=== PATIENT | female | born 1995 | race Caucasian/White ===

== ENCOUNTER 2020-03-22 19:27 | Emergency (ER) | payer OTHER ==
[~2020-03-22] VITALS: Ht 170.1 cm; Wt 72.6 kg
== END 2020-03-22 22:58 | disposition home or self-care (01) ==
LOC: ED 19:27
DX: S62.306A Unspecified fracture of fifth metacarpal bone, right hand, initial encounter for closed fracture (principal); X58.XXXA Exposure to other specified factors, initial encounter; Y93.89 Activity, other specified; Y92.89 Other specified places as the place of occurrence of the external cause; Y99.8 Other external cause status

== ENCOUNTER 2020-07-26 18:25 | Emergency (ER) | payer OTHER ==
[~2020-07-26] VITALS: Ht 165.1 cm; Wt 86.2 kg
[2020-07-26] MEDS ORDERED: ZOLOFT25 MG PO (19:23)
[2020-07-26] MEDS ORDERED: EFFEXOR XR75 M1 PO (19:24)
[2020-07-26] MEDS ORDERED: VYVANSE30 MG PO (19:26)
[2020-07-26 19:37] LABS: BILIRUBIN Negative (Negative); BLOOD 3+ (Negative); CLARITY Cloudy (Clear); COLOR Yellow (Yellow); GLUCOSE Negative (Negative); KETONE Negative (Negative); LEUKO ESTERASE 1+ (Negative); NITRITE Negative (Negative); UROBILINOGEN 0.2 E.U./dl (0.0-1.0)
[2020-07-26 19:51] LABS: RBC TNTC rbc/hpf (0-2)
[2020-07-26 20:31] LABS: BASO % 0.2 % (0.0-1.0); EOS # 0.1 10*3/uL (0.0-0.4); EOS % 0.5 % (1.0-4.0); HEMATOCRIT 39.6 % (37.0-47.0); LYMPH # 2.1 10*3/uL (1.3-4.4); LYMPH % 19.2 % (27.0-41.0); MEAN CELL VOLUME 79.7 fl (81.0-99.0); MEAN CORPUSCULAR HGB CONC 32.6 g/dl (33.0-37.0); MEAN PLATELET VOLUME 14.3 fl (9.6-12.3); MONO # 0.6 10*3/uL (0.1-1.0); MONO % 5.5 % (3.0-9.0); NEUT # 8.2 10*3/uL (2.3-7.9); NEUT % 74.2 % (47.0-73.0); PLATELET COUNT AUTOMATED 142 10*3/uL (130-400); RED BLOOD COUNT 4.97 10*6/uL (4.10-5.10); RED CELL DISTRI WIDTH 14.1 % (0-14.5)
[2020-07-26 20:46] LABS: ALBUMIN 2.6 gm/dl (3.1-4.5); ALKALINE PHOSPHATASE 76 U/L (45-117); BUN 6 mg/dl (7-24); CHLORIDE 107 mmol/L (98-107); CREATININE 0.59 mg/dL (0.55-1.02); SGOT/AST 8 IU/L (3-35); SGPT/ALT 13 U/L (12-78); SODIUM 141 mmol/L (136-145); TOTAL PROTEIN 6.7 gm/dL (6.4-8.2)
== END 2020-07-26 22:17 | disposition home or self-care (01) ==
LOC: ED 18:25
PROVIDERS: Physician Assistant
DX: O46.92 Antepartum hemorrhage, unspecified, second trimester (principal); Z3A.21 21 weeks gestation of pregnancy

== ENCOUNTER 2024-05-20 15:58 | Emergency (ER) | payer OTHER ==
[~2024-05-20] VITALS: Ht 152.4 cm; Wt 83.9 kg
[~2024-05-20 15:58] MED LIST: CLARITIN10 MG PO; EFFEXOR XR75 M1 PO; FLONASE ALLERG9.9 ML NAS; VYVANSE30 MG PO; ZITHROMAX500 MG PO; ZOLOFT25 MG PO
[2024-05-20] MEDS ORDERED: VALTREX500 MG PO (16:25)
[2024-05-20 16:40] LABS: BILIRUBIN Negative (Negative); BLOOD Negative (Negative); CLARITY Turbid (Clear); COLOR Yellow (Yellow); GLUCOSE Negative (Negative); KETONE Negative (Negative); LEUKO ESTERASE Negative (Negative); NITRITE Negative (Negative); UROBILINOGEN 0.2 E.U./dl (0.0-1.0)
[2024-05-20 16:48] LABS: BACTERIA 1+
[2024-05-20] MEDS ORDERED: valACYclovir Hydrochloride 500 MG CAP PO ONE (16:55)
[2024-05-20] MEDS ORDERED: Ciprofloxacin Hydrochloride 500 MG TAB PO ONE (16:55)
[2024-05-20] MEDS ORDERED: CIPRO500 MG PO (16:57)
== END 2024-05-20 17:05 | disposition home or self-care (01) ==
LOC: ED 15:58
PROVIDERS: Nurse Practitioner
DX: A60.00 Herpesviral infection of urogenital system, unspecified (principal); N39.0 Urinary tract infection, site not specified; F41.9 Anxiety disorder, unspecified; F32.A Depression, unspecified; F90.9 Attention-deficit hyperactivity disorder, unspecified type

== ENCOUNTER 2024-09-03 15:56 | Emergency (ER) | payer OTHER ==
[~2024-09-03] VITALS: Ht 165.1 cm; Wt 81.6 kg
[~2024-09-03 15:56] MED LIST changes: +CIPRO500 MG PO; +VALTREX500 MG PO
[2024-09-03] MEDS ORDERED: IBUPROFEN 800 MG TAB PO ONE (17:10)
== END 2024-09-03 17:34 | disposition home or self-care (01) ==
LOC: ED 15:56
DX: S93.401A Sprain of unspecified ligament of right ankle, initial encounter (principal); Z79.899 Other long term (current) drug therapy; W23.0XXA Caught, crushed, jammed, or pinched between moving objects, initial encounter; Y93.89 Activity, other specified; Y92.89 Other specified places as the place of occurrence of the external cause; Y99.8 Other external cause status